=== PATIENT | male | born 1950 | race Caucasian/White ===

== ENCOUNTER 2017-01-29 19:17 | Emergency (ER) | payer MEDICARE ==
[~2017-01-29] VITALS: Ht 188 cm; Wt 97.7 kg
[~2017-01-29 19:17] MED LIST: NO HOME MEDICATIONS
[2017-01-29 19:23] VITALS: BP 170/78; TEMP 97.9
[2017-01-29 20:13] LABS: BASO % 0.5 % (0.0-2.0); EOS # 0.3 (0.0-0.7); EOS % 3.6 % (0-4.0); GRAN # 5.8 (1.4-6.5); GRAN % 66.5 % (42.2-75.2); HEMATOCRIT 47.4 % (42.0-52.0); LYMPH % 23.2 % (20.0-51.0); MEAN CELL VOLUME 85 fl (80.0-100.0); MEAN CORPUSCULAR HEMOGLOBIN 29 pg (27.0-31.0); MEAN CORPUSCULAR HGB CONC 34 g/dl (33.0-37.0); MEAN PLATELET VOLUME 9.7 fl (7.4-10.4); MONO # 0.5 (0.1-0.6); MONO % 5.9 % (1.7-9.3); PLATELET COUNT 299 K/mm3 (130-400); RED BLOOD COUNT 5.56 M/mm3 (4.20-5.60); REDCELL DISTRIBUTION WIDTH-CV 12.8 % (11.5-14.5); WHITE BLOOD COUNT 8.8 K/mm3 (4.8-10.8)
[2017-01-29] MEDS ORDERED: CEPHALEXIN500 M1 PO (20:59)
[2017-01-29] MEDS ORDERED: TYLENOL W/COD1 UDTAB PO (20:59)
[2017-01-29 21:13] VITALS: PULSE 77
== END 2017-01-29 21:13 | disposition home or self-care (01) ==
LOC: COL.ER 19:17
PROVIDERS: Emergency Medicine
DX: S62.631B Displaced fracture of distal phalanx of left index finger, initial encounter for open fracture (principal); W31.2XXA Contact with powered woodworking and forming machines, initial encounter; Y92.009 Unspecified place in unspecified non-institutional (private) residence as the place of occurrence of the external cause
CPT/HCPCS: J0690